=== PATIENT | female | born 1980 | race Caucasian/White ===

== ENCOUNTER 2022-10-18 00:54 | Inpatient (IN) ==
[2022-10-18 01:12] LABS: Hematocrit 44 % (35-47); Hemoglobin 14.4 g/dL (12.0-16.0); Mean Corpuscular HGB Conc 33 g/dL (31-36); Mean Corpuscular Hemoglobin 32 pg (27-31); Mean Corpuscular Volume 96 fL (80-97); Mean Platelet Volume 8.6 fL (7.4-10.4); Platelet Count 273 10^3/uL (150-450); Red Blood Count 4.56 10^6 /uL (3.70-4.87); Red Cell Distribution Width 14 % (10-15); White Blood Count 12.8 10^3/uL (3.5-10.8)
[2022-10-18] MEDS ORDERED: Aspirin EC 325 mg TAB.EC PO ONE (01:12)
[2022-10-18 01:18] LABS: INR 1.05 (0.88-1.18)
[2022-10-18 01:42] LABS: ABS Basophils 0.1 10^3/ul (0-0.2); ABS Eosinophils 0.1 10^3/ul (0-0.6); ABS Lymphocytes 6.1 10^3/ul (1.0-4.8); ABS Monocytes 0.9 10^3/ul (0-0.8); ABS Neutrophils 5.6 10^3/ul (1.5-7.7); Eosinophil % 0.8 %; Lymphocyte % 47.8 %
[2022-10-18] MEDS ORDERED: Heparin 5000 UNITS/ML 1 mL VIAL ONE (01:44)
[2022-10-18] MEDS ORDERED: Heparin DRIP 25,000 UNITS BAG 0 UNITS/0 ML BAG ONE (01:44)
[2022-10-18] MEDS ORDERED: Heparin DRIP 25,000 UNITS BAG 25,000 UNITS/500 ML BAG ONE (01:50)
[2022-10-18] MEDS ORDERED: Heparin - STEMI 5,000 UNITS/ML 1 ml VIAL IV ONE (01:55)
[2022-10-18] MEDS ORDERED: nitroGLYCERIN DRIP 25,000 MCG/250 ML BTL IV SCH (02:00)
[2022-10-18] MEDS ORDERED: Heparin DRIP 25,000 UNITS BAG 25,000 UNITS/500 ML BAG IV SCH (02:00)
[2022-10-18] MEDS ORDERED: nitroGLYCERIN DRIP 25,000 MCG/250 ML BTL ONE ×2 (02:02→02:05)
[2022-10-18] MEDS ORDERED: VERAPAMIL 2.5 MG/ML 2 ML VIAL ** 5 mg/2 ml ONE (02:04)
[2022-10-18] MEDS ORDERED: Heparin 1,000 UNIT/ML 10 ml (10,000 UNITS) CATHLAB/DIALYSIS ONE (02:04)
[2022-10-18] MEDS ORDERED: Midazolam 5 mg/5 ml VIAL 1 mg/ml 5 ml VIAL (5 mg) ONE (02:04)
[2022-10-18] MEDS ORDERED: fentaNYL 100 mcg/2 ml 50 MCG/ML VIAL ONE (02:04)
[2022-10-18] MEDS ORDERED: Heparin 2 UNITS/ML 1000 mls 2,000 ML IV ONE (02:05)
[2022-10-18] MEDS ORDERED: Iohexol 350 (CONTRAST) 100 ML PAK IV ONE (02:05)
[2022-10-18] MEDS ORDERED: Lidocaine 1% MPF 5 ML VIAL ONE (02:05)
[2022-10-18 02:08] LABS: Albumin 4.4 g/dL (3.2-5.2); Albumin/Globulin Ratio 1.8 (1-3); Creatinine, Serum 0.58 mg/dL (0.51-0.95); Globulin 2.4 g/dL (2-4); Potassium 3.8 mmol/L (3.5-5.0); Total Bilirubin 0.2 mg/dL (0.2-1.0); Total Protein 6.8 g/dL (6.4-8.9); eGFR CKD-EPI 115.8 (>60)
[2022-10-18 02:09] LABS: Urine Appearance Cloudy; Urine Bilirubin Negative (Negative); Urine Blood 1+ (Negative); Urine Color Yellow; Urine Glucose Negative (Negative); Urine Ketones Trace (Negative); Urine Nitrite Negative (Negative); Urine Protein 2+(100 mg/dL) (Negative); Urine Specific Gravity 1.014 (1.002-1.030); Urine Urobilinogen Negative (Negative)
[2022-10-18] MEDS ORDERED: Bivalirudin 250 MG VIAL ONE (02:29)
[2022-10-18] MEDS ORDERED: Heparin 5000 UNITS/ML 1 mL VIAL IV SCH (03:00)
[2022-10-18] MEDS ORDERED: Eptifibatide IV (Load dose) 2 MG/ML 10 ml VIAL ONE (03:07)
[2022-10-18] MEDS ORDERED: Ondansetron 4 mg VIAL 2 MG/ML 2 ml VIAL ONE (03:22)
[2022-10-18] MEDS ORDERED: Furosemide 40 mg/4 ml IV VIAL ONE (03:31)
[2022-10-18 07:21] LABS: Magnesium 1.7 mg/dL (1.9-2.7)
[2022-10-18] MEDS ORDERED: Magnesium Sulfate 2 gm BAG 2 GM/50 ML BAG IVPB ONE (07:35)
[2022-10-18] MEDS ORDERED: Polyethylene Glycol 3350 17 GM PACKET PO PRN (07:53)
[2022-10-18 08:07] LABS: Albumin 4.3 g/dL (3.2-5.2); Calcium 8.8 mg/dL (8.6-10.3); Creatinine, Serum 0.54 mg/dL (0.51-0.95); Globulin 2.2 g/dL (2-4); Total Bilirubin 0.4 mg/dL (0.2-1.0); Total Protein 6.5 g/dL (6.4-8.9); eGFR CKD-EPI 117.8 (>60)
[2022-10-18] MEDS: Senna TAB 8.6 mg TAB PO SCH ×2 (08:14→21:28)
[2022-10-18 10:03] LABS: Hematocrit 40 % (35-47); Hemoglobin 13.3 g/dL (12.0-16.0); Mean Corpuscular HGB Conc 33 g/dL (31-36); Mean Corpuscular Hemoglobin 31 pg (27-31); Mean Corpuscular Volume 95 fL (80-97); Mean Platelet Volume 8.9 fL (7.4-10.4); Platelet Count 232 10^3/uL (150-450); Red Blood Count 4.23 10^6 /uL (3.70-4.87); Red Cell Distribution Width 14 % (10-15); White Blood Count 13.5 10^3/uL (3.5-10.8)
[2022-10-18 16:20] LABS: HDL Cholesterol 53.7 mg/dL
[2022-10-18 16:36] LABS: TSH Ultra Thyroid Stim Horm 1.39 mcIU/mL (0.34-5.60)
[2022-10-18 16:38] LABS: Free T3 3.2 pg/mL (2.5-3.9); Free T4 0.8 ng/dL (0.61-1.12)
[2022-10-19 06:10] LABS: ABS Eosinophils 0.1 10^3/ul (0-0.6); ABS Monocytes 0.9 10^3/ul (0-0.8); ABS Neutrophils 6.5 10^3/ul (1.5-7.7); Eosinophil % 0.6 %; Hematocrit 40 % (35-47); Hemoglobin 13.2 g/dL (12.0-16.0); Lymphocyte % 20.9 %; Mean Corpuscular HGB Conc 33 g/dL (31-36); Mean Corpuscular Hemoglobin 32 pg (27-31); Mean Corpuscular Volume 96 fL (80-97); Mean Platelet Volume 9.1 fL (7.4-10.4); Platelet Count 188 10^3/uL (150-450); Red Blood Count 4.13 10^6 /uL (3.70-4.87); Red Cell Distribution Width 14 % (10-15); White Blood Count 9.5 10^3/uL (3.5-10.8)
[2022-10-19 06:46] LABS: Albumin 3.9 g/dL (3.2-5.2); Calcium 8.5 mg/dL (8.6-10.3); Potassium 4.1 mmol/L (3.5-5.0); Total Bilirubin 0.7 mg/dL (0.2-1.0)
[2022-10-19 06:53] LABS: Albumin/Globulin Ratio 1.8 (1-3); Creatinine, Serum 0.51 mg/dL (0.51-0.95); Globulin 2.2 g/dL (2-4); HDL Cholesterol 44.2 mg/dL; Total Protein 6.1 g/dL (6.4-8.9); eGFR CKD-EPI 119.4 (>60)
[2022-10-19] MEDS: Senna TAB 8.6 mg TAB PO SCH ×2 (09:22→21:02)
[2022-10-19] MEDS ORDERED: Acetaminophen IV 1 GM/100ML 1,000 MG/100 ML BAG IV PRN (17:40)
[2022-10-20 06:05] LABS: ABS Eosinophils 0.1 10^3/ul (0-0.6); ABS Lymphocytes 2.2 10^3/ul (1.0-4.8); ABS Monocytes 0.8 10^3/ul (0-0.8); ABS Neutrophils 5.2 10^3/ul (1.5-7.7); Eosinophil % 0.8 %; Hematocrit 42 % (35-47); Hemoglobin 14.1 g/dL (12.0-16.0); Lymphocyte % 26.9 %; Mean Corpuscular HGB Conc 33 g/dL (31-36); Mean Corpuscular Hemoglobin 32 pg (27-31); Mean Corpuscular Volume 96 fL (80-97); Mean Platelet Volume 9.2 fL (7.4-10.4); Nucleated Red Blood Cells % 0.1; Platelet Count 224 10^3/uL (150-450); Red Blood Count 4.42 10^6 /uL (3.70-4.87); Red Cell Distribution Width 14 % (10-15); White Blood Count 8.3 10^3/uL (3.5-10.8)
[2022-10-20 06:41] LABS: Calcium 9.1 mg/dL (8.6-10.3); Creatinine, Serum 0.58 mg/dL (0.51-0.95); Potassium 4.2 mmol/L (3.5-5.0); eGFR CKD-EPI 115.8 (>60)
[2022-10-20 08:34] VITALS: BP 117/74
[2022-10-20] MEDS: Senna TAB 8.6 mg TAB PO SCH (09:13)
== END 2022-10-20 10:45 | disposition home or self-care (01) | DRG 174 ==
LOC: ED 00:54 → CHICATH 02:18 → ICU 03:49
PROVIDERS: ATTEND Internal Medicine Critical Care Medicine

== ENCOUNTER 2023-10-20 02:34 | Inpatient (IN) ==
[2023-10-20] MEDS: Ondansetron 4 mg VIAL 2 MG/ML 2 ml VIAL IV ONE (03:28)
[2023-10-20 03:44] LABS: INR 1.16 (0.83-1.13)
[2023-10-20 03:45] LABS: Albumin 4.4 g/dL (3.2-5.2); Albumin/Globulin Ratio 1.7 (1-3); Calcium 9.3 mg/dL (8.6-10.3); Creatinine, Serum 0.64 mg/dL (0.51-0.95); Globulin 2.6 g/dL (2-4); Potassium 3.7 mmol/L (3.5-5.0); Total Bilirubin 0.3 mg/dL (0.2-1.0); eGFR CKD-EPI 112.4 (>60)
[2023-10-20 03:47] LABS: ABS Lymphocytes 0.5 10^3/uL (1.0-4.8); ABS Monocytes 0.6 10^3/uL (0.0-0.9); Eosinophil % 0.3 %; Lymphocyte % 4.9 %; Mean Corpuscular Hgb Conc 34.1 g/dL (31-36); Mean Platelet Volume 8.3 fL (7.5-11.2); Platelet Count 248 10^3/uL (150-450); Red Blood Count 4.18 10^6/uL (3.63-4.92); Red Cell Distribution Width 13.5 % (12-17); White Blood Count 10.1 10^3/uL (3.8-11.8)
[2023-10-20 04:12] LABS: Urine Appearance Clear; Urine Bilirubin Negative (Negative); Urine Blood Negative (Negative); Urine Color Light-Yellow; Urine Glucose Trace (Negative); Urine Ketones Negative (Negative); Urine Nitrite Negative (Negative); Urine Protein Negative (Negative); Urine Specific Gravity 1.015 (1.002-1.030); Urine Urobilinogen Negative (Negative)
[2023-10-20 05:30] LABS: High Sensitivity Troponin 1 Hr 241 pg/mL (<15)
[2023-10-20] MEDS: NIRMATRELVIR/RITONAVIR 1 PAK eGFR > 60 PO ONE (08:02)
[2023-10-20] MEDS: Heparin 5000 UNITS/ML 1 mL VIAL IV SCH (08:37)
[2023-10-20] MEDS: Heparin DRIP 25,000 UNITS BAG 25,000 UNITS/250 ML BAG IV SCH (08:42)
[2023-10-20 08:48] LABS: High Sensitivity Troponin 3 Hr 793 pg/mL (<15)
[2023-10-20] MEDS: Ondansetron 4 mg VIAL 2 MG/ML 2 ml VIAL IV PRN (12:42)
[2023-10-20] MEDS ORDERED: nitroGLYCERIN DRIP 25,000 MCG/250 ML BTL ONE (13:00)
[2023-10-20] MEDS ORDERED: VERAPAMIL 2.5 MG/ML 2 ML VIAL ** 5 mg/2 ml ONE (13:00)
[2023-10-20] MEDS ORDERED: Heparin 2 UNITS/ML 1000 mls 2,000 ML IV ONE (13:00)
[2023-10-20] MEDS ORDERED: Heparin 1,000 UNIT/ML 10 ml (10,000 UNITS) CATHLAB/DIALYSIS ONE (13:00)
[2023-10-20] MEDS ORDERED: Midazolam 5 mg/5 ml VIAL 1 mg/ml 5 ml VIAL (5 mg) ONE (13:01)
[2023-10-20] MEDS ORDERED: Lidocaine 1% MPF 5 ML VIAL ONE (13:01)
[2023-10-20] MEDS ORDERED: fentaNYL 100 mcg/2 ml 50 MCG/ML VIAL ONE (13:01)
[2023-10-20] MEDS ORDERED: Iohexol 350 (CONTRAST) 200 ML MDV IV ONE (13:02)
[2023-10-20] MEDS ORDERED: Atropine 0.1 MG/ML 10 ml SYR (1 mg) ONE (14:06)
[2023-10-20] MEDS ORDERED: Bivalirudin 250 MG VIAL ONE ×2 (14:13→15:02)
[2023-10-20] MEDS ORDERED: Ondansetron 4 mg VIAL 2 MG/ML 2 ml VIAL ONE (14:41)
[2023-10-20] MEDS ORDERED: Eptifibatide IV (Load dose) 2 MG/ML 10 ml VIAL ONE ×2 (14:44→14:47)
[2023-10-20] MEDS ORDERED: Iohexol 350 (CONTRAST) 100 ML PAK IV ONE (15:06)
[2023-10-20] MEDS: fentaNYL 100 mcg/2 ml 50 MCG/ML VIAL IV SLOW PU ONE (16:22)
[2023-10-20] MEDS: NS 0.9% 1000 ml BAG 1,000 ML IV SCH ×2 (16:22)
[2023-10-20] MEDS: Midazolam 10 mg/10 ml VIAL 1 mg/ml 10 ml VIAL (10 mg) IV SLOW PU ONE (16:23)
[2023-10-20] MEDS: Enoxaparin 40 MG/0.4 ML SYR SUBCUT SCH (20:03)
[2023-10-21 05:10] LABS: ABS Lymphocytes 1.1 10^3/uL (1.0-4.8); ABS Neutrophils 5.4 10^3/uL (1.5-7.6); Eosinophil % 0.1 %; Hematocrit 37.8 % (35-45); Hemoglobin 12.7 g/dL (11.5-14.3); Lymphocyte % 14.1 %; Mean Corpuscular Hemoglobin 30.7 pg (27-33); Mean Corpuscular Hgb Conc 33.5 g/dL (31-36); Mean Corpuscular Volume 91.7 fL (80-97); Mean Platelet Volume 8.9 fL (7.5-11.2); Platelet Count 224 10^3/uL (150-450); Red Blood Count 4.12 10^6/uL (3.63-4.92); Red Cell Distribution Width 13.9 % (12-17); White Blood Count 7.5 10^3/uL (3.8-11.8)
[2023-10-21 05:29] LABS: Albumin 4.2 g/dL (3.2-5.2); Albumin/Globulin Ratio 1.6 (1-3); Calcium 9.1 mg/dL (8.6-10.3); Creatinine, Serum 0.56 mg/dL (0.51-0.95); Globulin 2.7 g/dL (2-4); HDL Cholesterol 45.9 mg/dL; Potassium 3.6 mmol/L (3.5-5.0); Total Bilirubin 0.4 mg/dL (0.2-1.0); Total Protein 6.9 g/dL (6.4-8.9); eGFR CKD-EPI 116.1 (>60)
[2023-10-22 06:41] LABS: ABS Lymphocytes 1.4 10^3/uL (1.0-4.8); ABS Monocytes 0.9 10^3/uL (0.0-0.9); ABS Neutrophils 4.4 10^3/uL (1.5-7.6); ABS Nucleated RBC 0.01 10^3/ul; Eosinophil % 0.1 %; Hematocrit 38.3 % (35-45); Lymphocyte % 21.1 %; Mean Corpuscular Volume 91.2 fL (80-97); Mean Platelet Volume 8.7 fL (7.5-11.2); Nucleated Red Blood Cells % 0.1 %/100WBC (0.0-0.8); Platelet Count 215 10^3/uL (150-450); Red Cell Distribution Width 13.6 % (12-17); White Blood Count 6.8 10^3/uL (3.8-11.8)
[2023-10-22 06:54] LABS: Creatinine, Serum 0.61 mg/dL (0.51-0.95); eGFR CKD-EPI 113.7 (>60)
[2023-10-22 13:56] VITALS: BP 100/64
== END 2023-10-22 16:10 | disposition home or self-care (01) | DRG 174 ==
LOC: ED 02:34 → EDHOLD 02:34 → AA 13:48 → MEDTELE 10-21 20:00
PROVIDERS: ADMIT Hospitalist; ATTEND Hospitalist